=== PATIENT | female | born 1990 | race Caucasian/White ===

== ENCOUNTER 2021-10-18 11:54 | Emergency (ER) | payer BC, OTHER ==
[~2021-10-18] VITALS: Ht 162.6 cm; Wt 90.7 kg
--- NOTE | 2021-10-18 12:23 | NUR ---
Dr Liu at the bedside for MSE.
[2021-10-18] MEDS ORDERED: BENZ-13 PO (12:29)
[2021-10-18] MEDS ORDERED: SUMA50TA PO (12:34)
[2021-10-18] MEDS ORDERED: SUMATRIPTAN SUCCINATE 50 MG TABLET PO ONE (12:45)
[2021-10-18] MEDS ORDERED: SUMATRIPTAN SUCCINATE 50 MG TABLET ONE (12:46)
[2021-10-18 12:51] VITALS: BP 120/85
--- NOTE | 2021-10-18 12:52 | NUR ---
Patient discharged to home in stable condition. Written and verbal after care instructions given. Patient verbalizes understanding of instructions. Stressed follow up or return to ER for worsening s/s.
== END 2021-10-18 13:10 | disposition home or self-care (01) ==
LOC: ER 11:59
DX: J06.9 Acute upper respiratory infection, unspecified (principal); B97.4 Respiratory syncytial virus as the cause of diseases classified elsewhere; Z20.822 Contact with and (suspected) exposure to COVID-19; G43.909 Migraine, unspecified, not intractable, without status migrainosus
CPT/HCPCS: 86403; 87070; A4663